=== PATIENT | male | born 1985 | race Caucasian/White ===

== ENCOUNTER → 2021-01-14 | Outpatient (CLI) | payer BC ==
[2021-01-14 17:47] LABS: ALBUMIN 4.2 g/dL (3.5-5.0); POTASSIUM 4.2 mmol/L (3.5-5.1)
[2021-01-14 17:48] LABS: CALCIUM 9.2 mg/dL (8.3-10.5)
== END ==
LOC: LAB 17:22
PROVIDERS: Family Medicine
DX: E78.00 Pure hypercholesterolemia, unspecified (principal)